=== PATIENT | female | born 1935 | race African-American/Black ===

== ENCOUNTER 2020-12-05 10:43 | Observation (INO) ==
[2020-12-05] MEDS ORDERED: SODIUM CHLORIDE 0.9% 1,000 ML IV STA (11:17)
[2020-12-05 11:49] LABS: Bilirubin,Urine Negative (Negative); Blood, Urine Small mg/dL (Negative); Glucose,Urine (UA) Negative (Negative); Hyaline Casts,Urine 1 /LPF (0-3); Ketones,Urine 5 mg/dL (Negative); Mucus,Urine Occasional /LPF (Occasional); Nitrite,Urine Negative (Negative); Protein,Urine Negative; RBC,Urine <1 /HPF (0-4); Urine Appearance CLEAR (Clear); Urine Color Yellow (Yellow); Urine Specific Gravity 1.016 (1.001-1.035); Urine Urobilinogen < 2.0 EU/DL (0.2-1.0)
[2020-12-05 12:45] LABS: Albumin 2.4 G/DL (3.4-5.0); Calcium 8.9 MG/DL (8.5-10.1); Osmolality,Calculated 277.7 MOS/KG (273-304); Potassium 2.6 MMOL/L (3.5-5.1); Total Protein 7.4 G/DL (6.4-8.2)
[2020-12-05] MEDS ORDERED: SODIUM CHLORIDE 0.9% 1,000 ML IV PRN ×2 (14:38→15:04)
[2020-12-05 15:07] LABS: Basophils # 0.1 10*3/uL (0.0-0.2); Basophils % 1.3 % (0.0-0.8); Eosinophils # 0.1 10*3/uL (0.0-0.87); Eosinophils % 1.9 % (0.00-10.9); Hematocrit 22.2 VOL% (35.7-47.0); Hemoglobin 6.9 GM/DL (12.0-16.0); Immature Granulocytes % 0.4 %; Immature Granulocytes Absolute 0.02 #; Lymphocytes # 1.2 10*3/uL (1.4-4.0); Lymphocytes % 24.9 % (21.3-54.2); Mean Corpuscular HGB Conc 31.1 GM/DL (32-36); Monocytes % 7.5 % (1.7-12.7); Platelet Count 154 T/CUMM (130-400); White Blood Count 4.8 T/CUMM (4-12)
[2020-12-05 15:13] LABS: Anisocytosis 3+; Atypical Lymphocytes Few; Band Neutrophils 2 % (0-10); Eosinophils 2 % (0-10); Lymphocytes 21 % (20-55); Macrocytosis 3+; Microcytosis 1+; Platelet Estimate Adequate; Poikilocytosis 1+; Polychromasia Few; Segmented Neutrophils 72 % (50-85); Total Cells Counted 100
[2020-12-05 15:14] LABS: Burr Cells Slight; Schistocytes 1+
[2020-12-05 15:18] LABS: % Iron Saturation 11.2 % (18-50); Ferritin 1244.2 ng/ml (8-252)
[2020-12-05] MEDS: POTASSIUM CHLORIDE 20 MEQ TABLET PO SCH ×3 (15:20→21:45)
[2020-12-05] MEDS: LACTATED RINGERS 1,000 ML IV SCH (15:58)
[2020-12-05 16:16] LABS: Sedimentation Rate-Westergren 136 MM/HR (0-30)
[2020-12-05 20:37] LABS: Vitamin B12 1283 PG/ML (211-911)
[2020-12-06 08:23] LABS: Basophils # 0.1 10*3/uL (0.0-0.2); Basophils % 1.1 % (0.0-0.8); Eosinophils # 0.3 10*3/uL (0.0-0.87); Eosinophils % 5.9 % (0.00-10.9); Hematocrit 28.7 VOL% (35.7-47.0); Immature Granulocytes % 0.5 %; Immature Granulocytes Absolute 0.02 #; Lymphocytes # 0.9 10*3/uL (1.4-4.0); Lymphocytes % 21.3 % (21.3-54.2); Mean Corpuscular HGB Conc 32.8 GM/DL (32-36); Mean Corpuscular Volume 102.9 FL (87-102); Mean Platelet Volume 11.4 FL (9.6-12.0); Monocytes % 6.1 % (1.7-12.7); Neutrophils % 65.1 % (38.7-73.9); Platelet Count 126 T/CUMM (130-400); Red Cell Distribution Width 20.3 % (9.3-17.3); White Blood Count 4.4 T/CUMM (4-12)
[2020-12-06 08:24] LABS: Hemoglobin 9.4 GM/DL (12.0-16.0); Red Blood Count 2.79 MC/CUMM (3.8-5.5)
[2020-12-06 08:38] LABS: Calcium 8.9 MG/DL (8.5-10.1); Osmolality,Calculated 280.4 MOS/KG (273-304)
[2020-12-06 08:43] LABS: Potassium 2.5 MMOL/L (3.5-5.1)
[2020-12-06 08:46] LABS: Hypochromasia 1+; Microcytosis 1+
[2020-12-06 08:47] LABS: Platelet Estimate Normal
[2020-12-06] MEDS ORDERED: POTASSIUM CHLORIDE RIDER 10 MEQ/100 ML PREMIX IV ONE (09:22)
[2020-12-06] MEDS ORDERED: POTASSIUM CHLORIDE RIDER 10 MEQ/100 ML PREMIX IV PRN (10:04)
[2020-12-06] MEDS: POTASSIUM CHLORIDE 20 MEQ TABLET PO SCH ×4 (10:45→18:12)
[2020-12-06] MEDS: PANTOPRAZOLE 40 MG TABLET PO SCH (10:46)
[2020-12-06] MEDS: LEVOTHYROXINE 25 MCG TABLET PO SCH (10:46)
[2020-12-06] MEDS ORDERED: TUBERCULIN SKIN TEST 0.1 ML SYRINGE INTRADERM ONE (13:17)
[2020-12-06] MEDS: DESITIN 4OZ/NYSTATIN 15 GRAM MIXTURE PASTE TOP SCH ×2 (13:52→22:07)
[2020-12-06] MEDS: LACTATED RINGERS 1,000 ML IV SCH (21:00)
[2020-12-06] MEDS: ACETAMINOPHEN 325 MG TABLET PO PRN (21:34)
[2020-12-07] MEDS: LACTATED RINGERS 1,000 ML IV SCH ×3 (01:26→11:38)
[2020-12-07] MEDS: ACETAMINOPHEN 325 MG TABLET PO PRN (05:08)
[2020-12-07 05:28] LABS: Basophils % 0.7 % (0.0-0.8); Eosinophils # 0.3 10*3/uL (0.0-0.87); Hematocrit 25.6 VOL% (35.7-47.0); Hemoglobin 8.1 GM/DL (12.0-16.0); Immature Granulocytes % 0.5 %; Immature Granulocytes Absolute 0.02 #; Lymphocytes # 1.3 10*3/uL (1.4-4.0); Lymphocytes % 30.7 % (21.3-54.2); Mean Corpuscular HGB Conc 31.6 GM/DL (32-36); Mean Corpuscular Volume 104.9 FL (87-102); Mean Platelet Volume 11.9 FL (9.6-12.0); Neutrophils % 52.1 % (38.7-73.9); Platelet Count 112 T/CUMM (130-400); Red Blood Count 2.44 MC/CUMM (3.8-5.5); Red Cell Distribution Width 21.1 % (9.3-17.3); White Blood Count 4.3 T/CUMM (4-12)
[2020-12-07 05:52] LABS: Calcium 8.5 MG/DL (8.5-10.1); Osmolality,Calculated 278.3 MOS/KG (273-304)
[2020-12-07 05:55] LABS: Thyroid Stimulating Hormone 9.98 uIU/ml (0.358-3.74)
[2020-12-07] MEDS: LEVOTHYROXINE 25 MCG TABLET PO SCH (08:51)
[2020-12-07] MEDS: PANTOPRAZOLE 40 MG TABLET PO SCH (08:51)
[2020-12-07] MEDS: POTASSIUM CHLORIDE 20 MEQ TABLET PO PRN ×2 (08:51→08:53)
[2020-12-07] MEDS ORDERED: ATORVASTATIN 40 MG TABLET PO SCH (09:00)
[2020-12-07] MEDS ORDERED: LEFLUNOMIDE 10 MG TABLET PO SCH (09:00)
[2020-12-07] MEDS: POTASSIUM CHLORIDE 20 MEQ TABLET PO SCH ×2 (10:16→11:36)
[2020-12-07] MEDS: DESITIN 4OZ/NYSTATIN 15 GRAM MIXTURE PASTE TOP SCH (11:37)
[2020-12-07 13:44] VITALS: BP 119/61
[2020-12-10 10:24] LABS: Hemoglobin A1 (Alkaline) 96.6 % (96.5-98.5); Hemoglobin A2 (Alkaline) 3.4 % (1.5-3.5)
== END 2020-12-07 16:16 | disposition swing bed (61) ==
LOC: N.EDINP 10:43 → N.ED 10:43 → N.4E 16:27
PROVIDERS: ADMIT Internal Medicine; ATTEND Internal Medicine

== ENCOUNTER 2021-07-27 21:07 | Inpatient (IN) ==
[2021-07-27] MEDS ORDERED: SODIUM CHLORIDE 0.9% 1,850 ML IV ONE (21:58)
[2021-07-27] MEDS ORDERED: FUROSEMIDE 100 MG/10 ML VIAL IV STA (22:01)
[2021-07-27 22:48] LABS: Basophils # 0.1 10*3/uL (0.0-0.2); Basophils % 1.6 % (0.0-0.8); Eosinophils # 0.1 10*3/uL (0.0-0.87); Eosinophils % 1.9 % (0.00-10.9); Immature Granulocytes % 0.9 %; Immature Granulocytes Absolute 0.06 #; Lymphocytes % 15.8 % (21.3-54.2); Mean Corpuscular HGB Conc 29.8 GM/DL (32-36); Mean Platelet Volume 11.7 FL (9.6-12.0); Neutrophils % 67.8 % (38.7-73.9); Platelet Count 178 T/CUMM (130-400); Red Blood Count 1.66 MC/CUMM (3.8-5.5); Red Cell Distribution Width 24.6 % (9.3-17.3); White Blood Count 6.3 T/CUMM (4-12)
[2021-07-27 22:49] LABS: Bacteria,Urine Many /HPF (Few); Bilirubin,Urine Negative (Negative); Blood, Urine Small mg/dL (Negative); Glucose,Urine (UA) Negative (Negative); Ketones,Urine Negative (Negative); Nitrite,Urine Negative (Negative); Protein,Urine 30 MG/DL; RBC,Urine 9 /HPF (0-4); Squamous Epithelial Cell,Urine Occasional /HPF (0-10); Transitional Epi Cells,Urine Occasional /HPF (<1); Urine Appearance Slightly Hazy (Clear); Urine Color Yellow (Yellow); Urine Specific Gravity 1.017 (1.001-1.035); Urine Urobilinogen < 2.0 EU/DL (<2.0)
[2021-07-27 22:54] LABS: Hemoglobin 5.1 GM/DL (12.0-16.0)
[2021-07-27 22:55] LABS: Hematocrit 17.1 VOL% (35.7-47.0)
[2021-07-27 22:59] LABS: INR 1.2; PT Patient Result 13.5 SECS (10.5-12.0); Partial Thromboplastin Time 34.5 SECS (23.8-32.1)
[2021-07-27] MEDS ORDERED: SODIUM CHLORIDE 0.9% 1,000 ML IV PRN ×2 (23:01→23:02)
[2021-07-27 23:32] LABS: Alanine Aminotransferase 9 U/L (13-56); Albumin 1.6 G/DL (3.4-5.0); Alkaline Phosphatase 86 U/L (45-117); Aspartate Amino Transferase 34 U/L (0-37); Blood Urea Nitrogen 26 MG/DL (7-18); Calcium 8.9 MG/DL (8.5-10.1); Carbon Dioxide 22 MMOL/L (21-32); Estimated Glom Filtration Rate 61 ML/MIN; Glucose 99 MG/DL (74-106); Osmolality,Calculated 285.3 MOS/KG (273-304); Sodium 141 MMOL/L (136-145); Total Protein 7.6 G/DL (6.4-8.2)
[2021-07-28] MEDS ORDERED: cefTRIAXone 1,000 MG in SODIUM CHLORIDE 0.9% 100 ML IV STA (00:07)
[2021-07-28] MEDS ORDERED: guaiFENesin/DM ER 600-30 MG TABLET PO PRN (00:27)
[2021-07-28] MEDS ORDERED: GLUCAGON 1 MG VIAL IM PRN (00:27)
[2021-07-28] MEDS ORDERED: DEXTROSE 50% 25 GM/50 ML SYRINGE IV PRN (00:27)
[2021-07-28] MEDS ORDERED: diphenhydrAMINE CAP 25 MG CAPSULE PO PRN (00:27)
[2021-07-28] MEDS ORDERED: hydrALAZINE 20 MG/1 ML VIAL IV PRN (00:27)
[2021-07-28] MEDS ORDERED: ONDANSETRON 4 MG/2 ML VIAL IV PRN (00:27)
[2021-07-28] MEDS ORDERED: NICOTINE 21 MG/24 HR PATCH TRANSDERM PRN (00:27)
[2021-07-28] MEDS ORDERED: ZALEPLON 5 MG CAPSULE PO PRN (00:27)
[2021-07-28] MEDS ORDERED: DOCUSATE SODIUM 100 MG CAPSULE PO PRN (00:27)
[2021-07-28] MEDS ORDERED: SODIUM CHLORIDE 0.9% 500 ML IV STA (00:54)
[2021-07-28] MEDS ORDERED: VANCOMYCIN INJ 1,000 MG in SODIUM CHLORIDE 0.9% 250 ML IV SCH (01:00)
[2021-07-28] MEDS: ALBUTEROL/IPRATROPIUM 3 ML NEB RESP TX SCH ×4 (02:28→19:54)
[2021-07-28 02:47] LABS: Band Neutrophils 4 % (0-10); Eosinophils 1 % (0-10); Lymphocytes 12 % (20-55); Metamyelocytes 2 %; Myelocytes 1 %; Segmented Neutrophils 74 % (50-85); Total Cells Counted 100
[2021-07-28 02:49] LABS: Hypochromia 3+; Microcytosis 2+; Platelet Estimate Normal
[2021-07-28 02:50] LABS: Ovalocytes 1+
[2021-07-28 05:51] LABS: Basophils # 0.1 10*3/uL (0.0-0.2); Basophils % 1.9 % (0.0-0.8); Eosinophils # 0.1 10*3/uL (0.0-0.87); Eosinophils % 1.2 % (0.00-10.9); Hematocrit 22.7 VOL% (35.7-47.0); Immature Granulocytes % 0.9 %; Immature Granulocytes Absolute 0.06 #; Lymphocytes # 1.2 10*3/uL (1.4-4.0); Lymphocytes % 17.7 % (21.3-54.2); Mean Corpuscular HGB Conc 30.4 GM/DL (32-36); Mean Corpuscular Volume 101.3 FL (87-102); Mean Platelet Volume 11.7 FL (9.6-12.0); Monocytes % 12.8 % (1.7-12.7); Neutrophils % 65.5 % (38.7-73.9); Platelet Count 168 T/CUMM (130-400); Red Cell Distribution Width 22.6 % (9.3-17.3); White Blood Count 6.5 T/CUMM (4-12)
[2021-07-28 05:55] LABS: Basophils # 0.1 10*3/uL (0.0-0.2); Basophils % 1.5 % (0.0-0.8); Eosinophils # 0.1 10*3/uL (0.0-0.87); Eosinophils % 1.1 % (0.00-10.9); Hematocrit 22.5 VOL% (35.7-47.0); Immature Granulocytes % 0.8 %; Immature Granulocytes Absolute 0.06 #; Lymphocytes # 1.2 10*3/uL (1.4-4.0); Lymphocytes % 16.8 % (21.3-54.2); Mean Corpuscular HGB Conc 29.8 GM/DL (32-36); Mean Corpuscular Volume 100.9 FL (87-102); Mean Platelet Volume 11.4 FL (9.6-12.0); Monocytes % 16.7 % (1.7-12.7); NRBC # 0.02 10*3/uL; Neutrophils % 63.1 % (38.7-73.9); Platelet Count 162 T/CUMM (130-400); Red Cell Distribution Width 22.5 % (9.3-17.3); White Blood Count 7.3 T/CUMM (4-12)
[2021-07-28] MEDS: MEROPENEM 500 MG in SODIUM CHLORIDE 0.9% 100 ML IV SCH ×5 (06:00→21:12)
[2021-07-28 06:06] LABS: Hemoglobin 6.9 GM/DL (12.0-16.0); Red Blood Count 2.24 MC/CUMM (3.8-5.5)
[2021-07-28 06:18] LABS: Hemoglobin 6.7 GM/DL (12.0-16.0); Red Blood Count 2.23 MC/CUMM (3.8-5.5)
[2021-07-28 06:20] LABS: Calcium 9.3 MG/DL (8.5-10.1); Osmolality,Calculated 283.3 MOS/KG (273-304)
[2021-07-28 06:26] LABS: Folate 2.41 NG/ML (5.38-24.0); Vitamin B12 1729 PG/ML (211-911)
[2021-07-28 06:28] LABS: Band Neutrophils 9 % (0-10); Eosinophils 1 % (0-10); Hypochromia 1+; Lymphocytes 9 % (20-55); Microcytosis 1+; Ovalocytes Slight; Platelet Estimate Adequate; Segmented Neutrophils 69 % (50-85); Total Cells Counted 100
[2021-07-28 06:37] LABS: Band Neutrophils 4 % (0-10); Eosinophils 1 % (0-10); Hypochromia 2+; Lymphocytes 12 % (20-55); Microcytosis 1+; Platelet Estimate Adequate; Segmented Neutrophils 76 % (50-85); Total Cells Counted 100
[2021-07-28 08:23] LABS: Sedimentation Rate-Westergren 130 MM/HR (0-30)
[2021-07-28] MEDS: PANTOPRAZOLE 40 MG TABLET PO SCH (11:15)
[2021-07-28] MEDS: cefTRIAXone 1,000 MG in SODIUM CHLORIDE 0.9% 100 ML IV SCH (11:52)
[2021-07-28] MEDS: FUROSEMIDE 40 MG/4 ML VIAL IV SCH ×2 (12:08→17:45)
[2021-07-29] MEDS: ALBUTEROL/IPRATROPIUM 3 ML NEB RESP TX SCH ×4 (01:38→19:35)
[2021-07-29] MEDS: MEROPENEM 500 MG in SODIUM CHLORIDE 0.9% 100 ML IV SCH ×4 (04:50→21:03)
[2021-07-29 06:07] LABS: Basophils # 0.1 10*3/uL (0.0-0.2); Basophils % 1.1 % (0.0-0.8); Eosinophils # 0.1 10*3/uL (0.0-0.87); Eosinophils % 0.7 % (0.00-10.9); Hematocrit 21.9 VOL% (35.7-47.0); Hemoglobin 6.8 GM/DL (12.0-16.0); Immature Granulocytes % 0.9 %; Immature Granulocytes Absolute 0.06 #; Lymphocytes # 1.1 10*3/uL (1.4-4.0); Lymphocytes % 15.5 % (21.3-54.2); Mean Corpuscular HGB Conc 31.1 GM/DL (32-36); Mean Corpuscular Volume 97.3 FL (87-102); Mean Platelet Volume 11.9 FL (9.6-12.0); Monocytes % 10.9 % (1.7-12.7); Neutrophils % 70.9 % (38.7-73.9); Platelet Count 165 T/CUMM (130-400); Red Blood Count 2.25 MC/CUMM (3.8-5.5); Red Cell Distribution Width 23.6 % (9.3-17.3)
[2021-07-29 06:18] LABS: Calcium 9.1 MG/DL (8.5-10.1); Osmolality,Calculated 281.3 MOS/KG (273-304); Potassium 2.7 MMOL/L (3.5-5.1)
[2021-07-29 06:35] LABS: Anisocytosis 3+; Band Neutrophils 31 % (0-10); Burr Cells Few; Eosinophils 1 % (0-10); Lymphocytes 7 % (20-55); Platelet Estimate Normal; Segmented Neutrophils 51 % (50-85); Smudge Cells Few; Total Cells Counted 100
[2021-07-29 06:36] LABS: Macrocytosis Slight
[2021-07-29] MEDS: POTASSIUM CHLORIDE 20 MEQ TABLET PO SCH ×2 (08:34→21:04)
[2021-07-29] MEDS: carvediloL 3.125 MG TABLET PO SCH ×3 (08:34→23:15)
[2021-07-29] MEDS: PANTOPRAZOLE 40 MG TABLET PO SCH (08:34)
[2021-07-29] MEDS: FUROSEMIDE 40 MG/4 ML VIAL IV SCH ×2 (08:35→16:05)
[2021-07-29] MEDS: cefTRIAXone 1,000 MG in SODIUM CHLORIDE 0.9% 100 ML IV SCH (12:12)
[2021-07-29] MEDS: ACETAMINOPHEN 325 MG TABLET PO PRN (15:00)
[2021-07-29] MEDS ORDERED: POTASSIUM CHLORIDE 20 MEQ TABLET PO ONE (17:31)
[2021-07-29] MEDS: FOLIC ACID 1 MG TABLET PO SCH (21:04)
[2021-07-30] MEDS: ALBUTEROL/IPRATROPIUM 3 ML NEB RESP TX SCH ×4 (01:38→20:00)
[2021-07-30] MEDS ORDERED: METOPROLOL TARTRATE 5 MG/5 ML VIAL IV PRN (02:07)
[2021-07-30] MEDS ORDERED: SODIUM CHLORIDE 0.9% 500 ML IV ONE (02:09)
[2021-07-30 05:45] LABS: Calcium 8.3 MG/DL (8.5-10.1); Osmolality,Calculated 285.1 MOS/KG (273-304); Potassium 3.9 MMOL/L (3.5-5.1)
[2021-07-30 05:46] LABS: % Iron Saturation 52.9 % (18-50)
[2021-07-30 05:48] LABS: Basophils # 0.1 10*3/uL (0.0-0.2); Basophils % 1.3 % (0.0-0.8); Eosinophils # 0.1 10*3/uL (0.0-0.87); Eosinophils % 1.7 % (0.00-10.9); Hematocrit 21.2 VOL% (35.7-47.0); Hemoglobin 6.7 GM/DL (12.0-16.0); Immature Granulocytes % 0.7 %; Immature Granulocytes Absolute 0.05 #; Lymphocytes # 0.9 10*3/uL (1.4-4.0); Lymphocytes % 12.8 % (21.3-54.2); Mean Corpuscular HGB Conc 31.6 GM/DL (32-36); Mean Corpuscular Volume 95.9 FL (87-102); Monocytes % 7.8 % (1.7-12.7); Neutrophils % 75.7 % (38.7-73.9); Platelet Count 144 T/CUMM (130-400); Red Blood Count 2.21 MC/CUMM (3.8-5.5); Red Cell Distribution Width 22.9 % (9.3-17.3); White Blood Count 7.2 T/CUMM (4-12)
[2021-07-30 06:13] LABS: Band Neutrophils 9 % (0-10); Hypochromia 1+; Lymphocytes 2 % (20-55); Platelet Estimate Normal; Segmented Neutrophils 84 % (50-85); Total Cells Counted 100
[2021-07-30 06:14] LABS: Microcytosis Slight
[2021-07-30] MEDS: MEROPENEM 500 MG in SODIUM CHLORIDE 0.9% 100 ML IV SCH ×4 (06:35→21:03)
[2021-07-30] MEDS: PANTOPRAZOLE 40 MG TABLET PO SCH (08:37)
[2021-07-30] MEDS: FUROSEMIDE 40 MG/4 ML VIAL IV SCH ×2 (08:37→10:11)
[2021-07-30] MEDS ORDERED: SODIUM CHLORIDE 0.9% 1,000 ML IV PRN (08:58)
[2021-07-30] MEDS ORDERED: METOPROLOL TARTRATE 25 MG TABLET PO SCH (09:00)
[2021-07-30] MEDS: SOTALOL 80 MG TABLET PO SCH ×2 (13:08→21:04)
[2021-07-30 19:47] LABS: Hematocrit 29.2 VOL% (35.7-47.0); Hemoglobin 9.6 GM/DL (12.0-16.0)
[2021-07-30] MEDS: FOLIC ACID 1 MG TABLET PO SCH (20:52)
[2021-07-30] MEDS: NITROFURANTOIN MACRO/MONO 100 MG CAPSULE PO SCH (20:52)
[2021-07-31] MEDS: ALBUTEROL/IPRATROPIUM 3 ML NEB RESP TX SCH ×4 (01:00→19:09)
[2021-07-31] MEDS: MEROPENEM 500 MG in SODIUM CHLORIDE 0.9% 100 ML IV SCH ×4 (04:45→21:06)
[2021-07-31 05:29] LABS: Basophils # 0.1 10*3/uL (0.0-0.2); Basophils % 1.2 % (0.0-0.8); Eosinophils % 0.7 % (0.00-10.9); Hematocrit 30.6 VOL% (35.7-47.0); Hemoglobin 10.1 GM/DL (12.0-16.0); Immature Granulocytes Absolute 0.06 #; Lymphocytes % 16.9 % (21.3-54.2); Mean Corpuscular Volume 92.2 FL (87-102); Mean Platelet Volume 11.7 FL (9.6-12.0); Neutrophils % 73.2 % (38.7-73.9); Platelet Count 117 T/CUMM (130-400); Red Blood Count 3.32 MC/CUMM (3.8-5.5); Red Cell Distribution Width 20.1 % (9.3-17.3)
[2021-07-31 05:44] LABS: Calcium 8.5 MG/DL (8.5-10.1); Osmolality,Calculated 284.1 MOS/KG (273-304); Potassium 3.1 MMOL/L (3.5-5.1)
[2021-07-31 06:11] LABS: Band Neutrophils 7 % (0-10); Hypochromia Slight; Lymphocytes 14 % (20-55); Segmented Neutrophils 70 % (50-85); Total Cells Counted 100
[2021-07-31 06:12] LABS: Anisocytosis 1+; Microcytosis 1+; Platelet Estimate Adequate
[2021-07-31] MEDS ORDERED: POTASSIUM CHLORIDE 20 MEQ TABLET PO ONE ×2 (07:46→13:33)
[2021-07-31] MEDS: PANTOPRAZOLE 40 MG TABLET PO SCH (09:06)
[2021-07-31] MEDS: NITROFURANTOIN MACRO/MONO 100 MG CAPSULE PO SCH (09:06)
[2021-07-31] MEDS: SOTALOL 80 MG TABLET PO SCH ×2 (09:06→21:06)
[2021-07-31] MEDS: FUROSEMIDE 40 MG/4 ML VIAL IV SCH ×2 (09:07→18:02)
[2021-07-31] MEDS: FOLIC ACID 1 MG TABLET PO SCH (21:06)
[2021-08-01] MEDS: ALBUTEROL/IPRATROPIUM 3 ML NEB RESP TX SCH ×4 (00:45→19:30)
[2021-08-01] MEDS: MEROPENEM 500 MG in SODIUM CHLORIDE 0.9% 100 ML IV SCH ×4 (02:52→21:01)
[2021-08-01 05:38] LABS: Basophils # 0.1 10*3/uL (0.0-0.2); Basophils % 1.4 % (0.0-0.8); Eosinophils % 0.7 % (0.00-10.9); Hematocrit 30.3 VOL% (35.7-47.0); Hemoglobin 9.7 GM/DL (12.0-16.0); Immature Granulocytes % 0.5 %; Immature Granulocytes Absolute 0.03 #; Lymphocytes # 1.1 10*3/uL (1.4-4.0); Lymphocytes % 18.8 % (21.3-54.2); Mean Corpuscular Volume 93.5 FL (87-102); Mean Platelet Volume 12.3 FL (9.6-12.0); Monocytes % 8.1 % (1.7-12.7); Neutrophils % 70.5 % (38.7-73.9); Platelet Count 112 T/CUMM (130-400); Red Blood Count 3.24 MC/CUMM (3.8-5.5); Red Cell Distribution Width 19.9 % (9.3-17.3); White Blood Count 5.7 T/CUMM (4-12)
[2021-08-01 05:54] LABS: Calcium 8.7 MG/DL (8.5-10.1); Osmolality,Calculated 280.3 MOS/KG (273-304)
[2021-08-01] MEDS: SOTALOL 80 MG TABLET PO SCH ×2 (08:48→21:03)
[2021-08-01] MEDS: POTASSIUM CHLORIDE 20 MEQ TABLET PO SCH (08:48)
[2021-08-01] MEDS: PANTOPRAZOLE 40 MG TABLET PO SCH (08:48)
[2021-08-01] MEDS: FUROSEMIDE 40 MG/4 ML VIAL IV SCH (08:49)
[2021-08-01] MEDS ORDERED: POTASSIUM CHLORIDE 20 MEQ TABLET PO ONE (13:08)
[2021-08-01] MEDS: FOLIC ACID 1 MG TABLET PO SCH (21:03)
[2021-08-02] MEDS: ALBUTEROL/IPRATROPIUM 3 ML NEB RESP TX SCH ×4 (00:09→19:10)
[2021-08-02] MEDS: MEROPENEM 500 MG in SODIUM CHLORIDE 0.9% 100 ML IV SCH ×3 (03:25→15:24)
[2021-08-02 05:11] LABS: Basophils # 0.1 10*3/uL (0.0-0.2); Eosinophils # 0.1 10*3/uL (0.0-0.87); Eosinophils % 1.2 % (0.00-10.9); Hematocrit 31.6 VOL% (35.7-47.0); Immature Granulocytes % 0.6 %; Immature Granulocytes Absolute 0.03 #; Lymphocytes # 1.2 10*3/uL (1.4-4.0); Lymphocytes % 24.3 % (21.3-54.2); Mean Corpuscular HGB Conc 31.6 GM/DL (32-36); Mean Platelet Volume 12.7 FL (9.6-12.0); Monocytes % 8.2 % (1.7-12.7); Neutrophils % 64.7 % (38.7-73.9); Platelet Count 100 T/CUMM (130-400); Red Blood Count 3.36 MC/CUMM (3.8-5.5); Red Cell Distribution Width 20.1 % (9.3-17.3); White Blood Count 5.1 T/CUMM (4-12)
[2021-08-02 05:34] LABS: Calcium 8.7 MG/DL (8.5-10.1); Osmolality,Calculated 283.1 MOS/KG (273-304); Potassium 3.3 MMOL/L (3.5-5.1)
[2021-08-02] MEDS ORDERED: LEVOTHYROXINE 25 MCG TABLET PO SCH (08:00)
[2021-08-02] MEDS: SOTALOL 80 MG TABLET PO SCH (08:12)
[2021-08-02] MEDS: POTASSIUM CHLORIDE 20 MEQ TABLET PO SCH (08:12)
[2021-08-02] MEDS: PANTOPRAZOLE 40 MG TABLET PO SCH (08:12)
[2021-08-02] MEDS ORDERED: FUROSEMIDE 40 MG TABLET PO SCH (09:00)
[2021-08-02] MEDS ORDERED: ATORVASTATIN 40 MG TABLET PO SCH (09:00)
[2021-08-02] MEDS ORDERED: LEFLUNOMIDE 10 MG TABLET PO SCH (09:00)
[2021-08-02] MEDS ORDERED: PANTOPRAZOLE 40 MG TABLET PO SCH (09:00)
[2021-08-02] MEDS ORDERED: DEXTROSE 10% 250 ML BAG IV PRN (11:00)
[2021-08-02] MEDS ORDERED: POTASSIUM CHLORIDE 20 MEQ TABLET PO ONE (13:17)
[2021-08-02 19:57] VITALS: BP 85/45
[2021-08-02] MEDS: ACETAMINOPHEN 325 MG TABLET PO PRN (20:48)
== END 2021-08-02 20:51 | DRG 280 ==
LOC: EDBD → EDUNIT# → N.ED 21:07 → N.EDINP 07-28 00:27 → SUATTDRO 07-28 00:27 → N.TELEN 07-28 01:17
PROVIDERS: ADMIT Internal Medicine; ATTEND Internal Medicine